=== PATIENT | female | born 2000 | race Caucasian/White ===

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

== ENCOUNTER 2018-07-04 11:27 | Emergency (ER) | payer BC, MEDICAID ==
[2018-07-04] MEDS ORDERED: NORMAL SALINE 1000 ML 1,000 ML IV ONE ×2 (11:56→13:27)
[2018-07-04] MEDS ORDERED: ONDANSETRON HCL INJ/PF 4 MG/2 ML SDV IV ONE (11:57)
--- NOTE | 2018-07-04 11:59 | ER Document Report ---
ED Medical Screen (RME) - General Chief Complaint: Nausea/Vomiting Stated Complaint: VOMITING,NAUSEA Time Seen by Provider: 07/04/18 11:40 Mode of Arrival: Ambulatory Information source: Patient Notes: female who is 7 weeks presents emergency department with complaints of nausea, vomiting, constipation, lower back cramping and lower abdominal sharp and stabbing pain. No radiation of her back pain or her abdominal pain. No alleviating or exacerbating factors. Patient states that she has followed up with her [facility] and has had a AN ultrasound that showed an intrauterine . She denies any vaginal bleeding. She states that she has been constipated for the last 5 days and is tried prune juice and apple juice without relief of symptoms. She is not sure if her pain is related to the constipation. [facility]. I have greeted and performed a rapid initial assessment of this patient. A comprehensive ED assessment and evaluation of the patient, analysis of test results and completion of the medical decision making process will be conducted by additional ED providers. PHYSICAL EXAMINATION: GENERAL: Well-appearing, well-nourished and in no acute distress. HEAD: Atraumatic, normocephalic. EYES: Pupils equal round extraocular movements intact, conjunctiva are normal. ENT: Nares patent NECK: Normal range of motion LUNGS: No respiratory distress Musculoskeletal: Normal range of motion NEUROLOGICAL: Normal speech, normal gait. PSYCH: Normal mood, normal affect. SKIN: Warm, Dry, normal turgor, no rashes or lesions noted. TRAVEL OUTSIDE OF THE [place] IN LAST 30 DAYS: No - Related Data Allergies/Adverse Reactions: metoclopramide [From Reglan] Allergy (Severe, Verified 07/04/18 11:47) restlessness oxycodone Allergy (Severe, Verified 07/04/18 11:47) drowsiness adhesive tape Allergy (Verified 07/04/18 11:47) Rash clotrimazole [From Lotrimin] Allergy (Verified 07/04/18 11:47) 2nd and 3rd degree Wahl escitalopram [From Lexapro] Allergy (Verified 07/04/18 11:47) Suicidal Ideation lithium Allergy (Verified 07/04/18 11:47) Suicidal Ideation prochlorperazine [From Compazine] Allergy (Verified 07/04/18 11:47) Nausea tioconazole [From Monistat 1 (tioconazole)] Allergy (Verified 07/04/18 11:47) 2nd and 3rd degree Wahl tramadol Allergy (Verified 07/04/18 11:47) Burning antidepressants Allergy (Uncoded 07/04/18 11:47) Suicidal Ideation Past Medical History - Social History Frequency of alcohol use: None Drug Abuse: None - Past Medical History Cardiac Medical History: Denies: Hx Pulmonary Embolism Pulmonary Medical History: Reports: Hx Asthma Renal/ Medical History: Denies: Hx Peritoneal Dialysis Past Surgical History: Reports: Hx Oral Surgery - Immunizations Hx Diphtheria, Pertussis, Tetanus Vaccination: No Physical Exam - Vital signs Vitals: Temp Pulse Resp BP Pulse Ox 98.6 F 91 16 114/65 100 07/04/18 11:36 07/04/18 11:36 07/04/18 11:36 07/04/18 11:36 07/04/18 11:36 Course - Vital Signs Vital signs: Temp Pulse Resp BP Pulse Ox 98.6 F 91 16 114/65 100 07/04/18 11:36 07/04/18 11:36 07/04/18 11:36 07/04/18 11:36 07/04/18 11:36
[2018-07-04 12:38] LABS: ABSOLUTE EOSINOPHILS # (AUTO) 0.1 10^3/uL (0.0-0.6); ABSOLUTE LYMPHOCYTES (AUTO) 1.6 10^3/uL (0.5-4.7); ABSOLUTE MONOCYTES (AUTO) 0.5 10^3/uL (0.1-1.4); BASOPHILS % (AUTO) 0.2 % (0-2); EOSINOPHILS % (AUTO) 1.7 % (0-6); HEMATOCRIT 44.4 % (36.0-47.0); HEMOGLOBIN 15.5 g/dL (12.0-15.5); LYMPHOCYTES % (AUTO) 19.5 % (13-45); MEAN CORPUSCULAR HEMOGLOBIN 30.6 pg (27.0-33.4); MEAN CORPUSCULAR VOLUME 87 fl (80-97); MONOCYTES % (AUTO) 6.3 % (3-13); PLATELET COUNT 239 10^3/uL (150-450); RED BLOOD COUNT 5.09 10^6/uL (3.72-5.28); RED CELL DISTRIBUTION WIDTH 12.4 % (11.5-14.0); SEGMENTED NEUTROPHILS % (AUTO) 72.3 % (42-78); TOTAL CELLS COUNTED % (AUTO) 100 %; WHITE BLOOD COUNT 8.4 10^3/uL (4.0-10.5)
[2018-07-04 12:50] LABS: ALANINE AMINOTRANSFERASE 37 U/L (9-52); ALBUMIN 4.5 g/dL (3.5-5.0); ALKALINE PHOSPHATASE 54 U/L (38-126); ANION GAP 9 (5-19); ASPARTATE AMINO TRANSFERASE 22 U/L (14-36); BILIRUBIN,DIRECT 0.1 mg/dL (0.0-0.4); BILIRUBIN,TOTAL 0.5 mg/dL (0.2-1.3); BLOOD UREA NITROGEN 9 mg/dL (7-20); CALCIUM 9.9 mg/dL (8.4-10.2); CARBON DIOXIDE 27 mmol/L (22-30); CHLORIDE 105 mmol/L (98-107); GLUCOSE 88 mg/dL (75-110); LIPASE 32.4 U/L (23-300); POTASSIUM 4.5 mmol/L (3.6-5.0); SODIUM 140.5 mmol/L (137-145); TOTAL PROTEIN 6.8 g/dL (6.3-8.2)
[2018-07-04 12:52] LABS: APPEARANCE,URINE CLOUDY; BILIRUBIN,URINE NEGATIVE (NEGATIVE); COLOR,URINE AMBER; GLUCOSE, URINE NEGATIVE (NEGATIVE); KETONES,URINE NEGATIVE (NEGATIVE); LEUKOCYTE ESTERASE,URINE SMALL (NEGATIVE); NITRITE,URINE NEGATIVE (NEGATIVE); PROTEIN,URINE NEGATIVE (NEGATIVE); URINE SPECIFIC GRAVITY 1.024
--- NOTE | 2018-07-04 13:36 | ER Document Report ---
ED General - General Chief Complaint: Nausea/Vomiting Stated Complaint: VOMITING,NAUSEA Time Seen by Provider: 07/04/18 11:40 Mode of Arrival: Ambulatory Notes: E provider note: female who is 7 weeks presents emergency department with complaints of nausea, vomiting, constipation, lower back cramping and lower abdominal sharp and stabbing pain. No radiation of her back pain or her abdominal pain. No alleviating or exacerbating factors. Patient states that she has followed up with her [employer] and has had a AN ultrasound that showed an intrauterine . She denies any vaginal bleeding. She states that she has been constipated for the last 5 days and is tried prune juice and apple juice without relief of symptoms. She is not sure if her pain is related to the constipation. She follows [facility] with [facility]. MY HPI: After treatments by the [facility] provider patient states she no longer has general lower abdominal pain. Does have minor pain in her bilateral lower back. Denies dysuria or vaginal discharge. Past medical history: Genital herpes Medications: Acyclovir Allergies: Reglan Last menstrual period 05/07/2018 TRAVEL OUTSIDE OF THE [place] IN LAST 30 DAYS: No - Related Data Allergies/Adverse Reactions: metoclopramide [From Reglan] Allergy (Severe, Verified 07/04/18 11:47) restlessness oxycodone Allergy (Severe, Verified 07/04/18 11:47) drowsiness adhesive tape Allergy (Verified 07/04/18 11:47) Rash clotrimazole [From Lotrimin] Allergy (Verified 07/04/18 11:47) 2nd and 3rd degree Wahl escitalopram [From Lexapro] Allergy (Verified 07/04/18 11:47) Suicidal Ideation lithium Allergy (Verified 07/04/18 11:47) Suicidal Ideation prochlorperazine [From Compazine] Allergy (Verified 07/04/18 11:47) Nausea tioconazole [From Monistat 1 (tioconazole)] Allergy (Verified 07/04/18 11:47) 2nd and 3rd degree Wahl tramadol Allergy (Verified 07/04/18 11:47) Burning antidepressants Allergy (Uncoded 07/04/18 11:47) Suicidal Ideation Past Medical History - General Information source: Patient - Social History Smoking Status: Unknown if Ever Smoked Frequency of alcohol use: None Drug Abuse: None Family History: Reviewed & Not Pertinent Patient has suicidal ideation: No Patient has homicidal ideation: No - Past Medical History Cardiac Medical History: Denies: Hx Pulmonary Embolism Pulmonary Medical History: Reports: Hx Asthma Renal/ Medical History: Denies: Hx Peritoneal Dialysis Past Surgical History: Reports: Hx Oral Surgery - Immunizations Hx Diphtheria, Pertussis, Tetanus Vaccination: No Review of Systems - Review of Systems Constitutional: No symptoms reported EENT: No symptoms reported - No Cardiovascular: No symptoms reported Respiratory: No symptoms reported Gastrointestinal: See HPI Genitourinary: See HPI Female Genitourinary: See HPI Musculoskeletal: No symptoms reported - and Skin: No symptoms reported Hematologic/Lymphatic: No symptoms reported Neurological/Psychological: No symptoms reported Physical Exam - Vital signs Vitals: Temp Pulse Resp BP Pulse Ox 98.6 F 91 16 114/65 100 07/04/18 11:36 07/04/18 11:36 07/04/18 11:36 07/04/18 11:36 07/04/18 11:36 - Notes Notes: GENERAL: Obese alert, interacts well. No acute distress. HEAD: Normocephalic, atraumatic. EYES: Pupils equal, round, and reactive to light. Extraocular movements intact. ENT: Oral mucosa moist, tongue midline. NECK: Full range of motion. Supple. Trachea midline. LUNGS: Clear to auscultation bilaterally, no wheezes, rales, or rhonchi. No respiratory distress. HEART: Regular rate and rhythm. No murmur ABDOMEN: Soft, Non-distended. Bowel sounds present in all 4 quadrants. No McBurney's point tenderness, no Sanchez sign noted. Patient does have gen eralized left upper quadrant abdominal pain. EXTREMITIES: Moves all 4 extremities spontaneously. No edema, normal radial and dorsalis pedis pulses bilaterally. No cyanosis. BACK: no cervical, thoracic, lumbar midline tenderness. No saddle anesthesia, normal distal neurovascular exam. General bilateral lower paraspinal lumbar back pain NEUROLOGICAL: Alert and oriented x3. Normal speech. cranial nerves II through XII grossly intact PSYCH: Normal affect, normal mood. SKIN: Warm, dry, normal turgor. No rashes or lesions noted. Course - Re-evaluation Re-evalutation: 07/04/18 13:40 Patient's labs show no signs of leukocytosis, no signs of anemia, no signs of electrolyte abnormalities, no signs of urinary tract infection. Urine was sent for culture although squamous cells outweigh white blood cells so I will not treat for urinary tract infection at this time. Patient was given 2 L of intravenous fluids in the emergency department. Discussed use of bulk forming laxatives, staying hydrated and use of Unisom and B6 at home. Patient wishes to refuse An enema at this time to relieve her constipation. Close return precautions discussed. Patient has had no episodes of vomiting since her treatments in the emergency department and has been able to p.o. liquids. Patient stable for discharge. - Vital Signs Vital signs: Temp Pulse Resp BP Pulse Ox 98.6 F 91 16 114/65 100 07/04/18 11:36 07/04/18 11:36 07/04/18 11:36 07/04/18 11:36 07/04/18 11:36 - Laboratory Result Diagrams: 07/04/18 12:03 07/04/18 12:03 Laboratory results interpreted by me: 07/04/18 07/04/18 12:03 12:03 Beta HCG, Quant [id number] H Urine Urobilinogen 2.0 H Ur Leukocyte Esterase SMALL H Discharge - Discharge Clinical Impression: Constipation Qualifiers: Constipation type: other constipation type Qualified Code(s): K59.09 - Other constipation Vomiting Qualifiers: Vomiting type: unspecified Vomiting Intractability: non-intractable Nausea presence: with nausea Qualified Code(s): R11.2 - Nausea with vomiting, unspecified Condition: Stable Disposition: HOME, SELF-CARE Instructions: Bulk Laxatives Additional Instructions: As we discussed you have been seen and treated in the emergency department for your generalized abdominal and lower back pain. Please take medications we have discussed Unisom and B6 for generalized nausea and vomiting. Please also increase her fiber and water intake. Please follow-up with your primary care pr ovider and [employer] at your earliest convenience. Please return to the emergency room should you have any other concerning symptom Prescriptions: Doxylamine Succinate [Unisom] 25 mg PO DAILY #30 tablet Forms: Return to Work
[2018-07-04 15:15] VITALS: BP 112/57
== END 2018-07-04 15:16 | disposition home or self-care (01) ==
LOC: ER 11:27
DX: O99.611 Diseases of the digestive system complicating pregnancy, first trimester (principal); K59.00 Constipation, unspecified; O21.9 Vomiting of pregnancy, unspecified; O98.311 Other infections with a predominantly sexual mode of transmission complicating pregnancy, first trimester; A60.00 Herpesviral infection of urogenital system, unspecified; O26.891 Other specified pregnancy related conditions, first trimester; R10.12 Left upper quadrant pain; O99.89 Other specified diseases and conditions complicating pregnancy, childbirth and the puerperium; M54.5 Low back pain; O99.511 Diseases of the respiratory system complicating pregnancy, first trimester; J45.909 Unspecified asthma, uncomplicated; Z3A.01 Less than 8 weeks gestation of pregnancy; Z88.8 Allergy status to other drugs, medicaments and biological substances; Z88.5 Allergy status to narcotic agent; Z91.048 Other nonmedicinal substance allergy status; Z88.3 Allergy status to other anti-infective agents
CPT/HCPCS: 99284; 96361; 96374; 36415; 87086; 84702; 83690; 85025; 80053; 81001; J2405; J7030

== ENCOUNTER 2018-09-06 03:14 | Emergency (ER) | payer BC, MEDICAID ==
[2018-09-06 05:02] LABS: APPEARANCE,URINE CLOUDY; BILIRUBIN,URINE NEGATIVE (NEGATIVE); CALCIUM OXALATE CRYSTALS,URINE MODERATE /HPF; GLUCOSE, URINE NEGATIVE (NEGATIVE); KETONES,URINE NEGATIVE (NEGATIVE); LEUKOCYTE ESTERASE,URINE TRACE (NEGATIVE); NITRITE,URINE NEGATIVE (NEGATIVE); PROTEIN,URINE 100 mg/dL (NEGATIVE); URINE SPECIFIC GRAVITY 1.034; UROBILINOGEN,URINE NEGATIVE mg/dL (<2.0)
[2018-09-06 05:03] LABS: COLOR,URINE DARK YELLOW
--- NOTE | 2018-09-06 05:05 | RADIOLOGY REPORT (SQ) ---
Right foot three view on 09/06/2018 at 4:43 AM CLINICAL INDICATION: Right foot pain after fall COMPARISON: None FINDINGS: There are no fractures. Visualized joints are well aligned. No bony abnormality is noted. There is no radiopaque foreign body. IMPRESSION: No acute abnormality.
--- NOTE | 2018-09-06 05:06 | RADIOLOGY REPORT (SQ) ---
Right knee four view on 09/06/2018 at 4:38 AM CLINICAL INDICATION: Right knee pain after fall COMPARISON: None FINDINGS: No joint effusion is noted. There are no fractures. Visualized joints are well aligned. No bony abnormality is noted. IMPRESSION: No acute abnormality.
--- NOTE | 2018-09-06 05:06 | RADIOLOGY REPORT (SQ) ---
EXAM DESCRIPTION: XR CHEST 2 VIEWS COMPLETED DATE/TME: 09/06/2018 04:17 CLINICAL HISTORY: 18 years, Female, fall bruised left ribs (shield; patient ) COMPARISON: 05/08/2017 NUMBER OF VIEWS: Two TECHNIQUE: Two views of the chest LIMITATIONS: None. FINDINGS: The lungs are clear. The heart is normal in size. There is no pneumothorax or pleural effusion. There is no acute fracture IMPRESSION: No acute cardiopulmonary abnormality copyright 2010 [employer]- All Rights Reserved
[2018-09-06 05:20] LABS: ABSOLUTE EOSINOPHILS # (AUTO) 0.1 10^3/uL (0.0-0.6); ABSOLUTE LYMPHOCYTES (AUTO) 2.3 10^3/uL (0.5-4.7); ABSOLUTE MONOCYTES (AUTO) 0.7 10^3/uL (0.1-1.4); ABSOLUTE NEUT (AUTO) 7.1 10^3/uL (1.7-8.2); BASOPHILS % (AUTO) 0.2 % (0-2); EOSINOPHILS % (AUTO) 1.2 % (0-6); HEMATOCRIT 36.9 % (36.0-47.0); LYMPHOCYTES % (AUTO) 22.4 % (13-45); MEAN CORPUSCULAR HEMOGLOBIN 30.3 pg (27.0-33.4); MEAN CORPUSCULAR HGB CONC 35.1 g/dL (32.0-36.0); MEAN CORPUSCULAR VOLUME 86 fl (80-97); MONOCYTES % (AUTO) 7.1 % (3-13); PLATELET COUNT 227 10^3/uL (150-450); RED BLOOD COUNT 4.28 10^6/uL (3.72-5.28); RED CELL DISTRIBUTION WIDTH 12.7 % (11.5-14.0); SEGMENTED NEUTROPHILS % (AUTO) 69.1 % (42-78); TOTAL CELLS COUNTED % (AUTO) 100 %; WHITE BLOOD COUNT 10.2 10^3/uL (4.0-10.5)
[2018-09-06 05:31] LABS: ALANINE AMINOTRANSFERASE 23 U/L (9-52); ALBUMIN 3.7 g/dL (3.5-5.0); ALKALINE PHOSPHATASE 53 U/L (38-126); ANION GAP 9 (5-19); ASPARTATE AMINO TRANSFERASE 13 U/L (14-36); BILIRUBIN,DIRECT 0.2 mg/dL (0.0-0.4); BILIRUBIN,TOTAL 0.3 mg/dL (0.2-1.3); BLOOD UREA NITROGEN 11 mg/dL (7-20); CALCIUM 9.8 mg/dL (8.4-10.2); CARBON DIOXIDE 23 mmol/L (22-30); CHLORIDE 107 mmol/L (98-107); GLUCOSE 81 mg/dL (75-110); POTASSIUM 4.1 mmol/L (3.6-5.0); SODIUM 138.6 mmol/L (137-145); TOTAL PROTEIN 6.4 g/dL (6.3-8.2)
--- NOTE | 2018-09-06 06:23 | RADIOLOGY REPORT (SQ) ---
EXAM DESCRIPTION: US LIMITED COMPLETED DATE/TME: 09/06/2018 04:15 CLINICAL HISTORY: 18 years Female, fall injury, cramping 17w0d Comparison: 02/14/17 TECHNIQUE/LIMITATION: Targeted OB sonogram for requested parameters only. FINDINGS: Cardiac activity: 139-bpm. Placenta: Anterior, left lateral. No demonstrated abruption or previa. Presentation: Breech Cervical length: 3.6-cm. Closed appearance. Other: Anterior uterine contraction visualized. IMPRESSION: Targeted OB sonogram for requested parameters
[2018-09-06] MEDS ORDERED: NORMAL SALINE 1000 ML 1,000 ML IV ONE (06:41)
[2018-09-06] MEDS ORDERED: HYDROXYZINE PAMOATE 50 MG CAPSULE PO ONE (06:53)
--- NOTE | 2018-09-06 07:00 | ER Document Report ---
ED Fall - General Chief Complaint: Fall Stated Complaint: FELL DOWN STAIRS/ Time Seen by Provider: 09/06/18 03:59 Notes: Patient is a 18-year-old female, at 17 weeks gestation by first trimester ultrasound, that comes emergency department for chief complaint of a fall. She states that she stepped through her steps and fell forward, she fell onto the ground, she states she scraped her right knee, she has pain in her right foot, she also scraped her left rib area and left side area on the ground. She denies difficulty breathing. She denies hitting her head, denies pain in her arms or back. She states she has had some cramping sensations but denies vaginal bleeding. Her tetanus is up-to-date within 5 years. TRAVEL OUTSIDE OF THE [place] IN LAST 30 DAYS: No - Related data Allergies/Adverse Reactions: metoclopramide [From Reglan] Allergy (Severe, Verified 07/04/18 11:47) restlessness oxycodone Allergy (Severe, Verified 07/04/18 11:47) drowsiness adhesive tape Allergy (Verified 07/04/18 11:47) Rash clotrimazole [From Lotrimin] Allergy (Verified 07/04/18 11:47) 2nd and 3rd degree Wahl escitalopram [From Lexapro] Allergy (Verified 07/04/18 11:47) Suicidal Ideation lithium Allergy (Verified 07/04/18 11:47) Suicidal Ideation prochlorperazine [From Compazine] Allergy (Verified 07/04/18 11:47) Nausea tioconazole [From Monistat 1 (tioconazole)] Allergy (Verified 07/04/18 11:47) 2nd and 3rd degree Wahl tramadol Allergy (Verified 07/04/18 11:47) Burning antidepressants Allergy (Uncoded 07/04/18 11:47) Suicidal Ideation Past Medical History - General Information source: Patient - Social History Smoking Status: Never Smoker Frequency of alcohol use: None Drug Abuse: None Lives with: Family Family History: Reviewed & Not Pertinent Patient has suicidal ideation: No Patient has homicidal ideation: No - Past Medical History Cardiac Medical History: Denies: Hx Pulmonary Embolism Pulmonary Medical History: Reports: Hx Asthma Renal/ Medical History: Denies: Hx Peritoneal Dialysis Past Surgical History: Reports: Hx Oral Surgery - Immunizations Immunizations up to date: Yes Hx Diphtheria, Pertussis, Tetanus Vaccination: Yes Review of Systems - Review of Systems Constitutional: No symptoms reported EENT: No symptoms reported Cardiovascular: No symptoms reported Respiratory: No symptoms reported Gastrointestinal: No symptoms reported Genitourinary: No symptoms reported Female Genitourinary: See HPI Musculoskeletal: See HPI Skin: See HPI Hematologic/Lymphatic: No symptoms reported Neurological/Psychological: No symptoms reported Physical Exam - Vital signs Vitals: Temp Pulse Resp BP Pulse Ox 98.3 F 111 H 24 H 106/52 L 97 09/06/18 03:20 09/06/18 03:20 09/06/18 03:20 09/06/18 03:09/06/18 03:20 - Notes Notes: GENERAL: Alert, interacts well. No acute distress. HEAD: Normocephalic, atraumatic. EYES: Pupils equal, round, and reactive to light. Extraocular movements intact. ENT: Oral mucosa moist, tongue midline. Oropharynx unremarkable. Airway patent. Nares patent, no nasal septal hematoma, TM's intact. NECK: Full range of motion. Supple. Trachea midline. LUNGS: Clear to auscultation bilaterally, no wheezes, rales, or rhonchi. No respiratory distress. There is a tiny abrasion over the left lateral ribs with minimal tenderness around this area. There is no significant bruising, there is no swelling or crepitus. HEART: Borderline tachycardic, normal rhythm. No murmur. ABDOMEN: Soft, non-tender. Non-distended. Bowel sounds present in all 4 quadrants. GENITOURINARY: Deferred EXTREMITIES: Moves all 4 extremities spontaneously. No edema, normal radial and dorsalis pedis pulses bilaterally. Abrasion over the right anterior knee w ithout soft tissue swelling, bruising over the right fifth digit dorsally without swelling of the foot. Normal upper and lower extremity exam is otherwise. BACK: no cervical, thoracic, lumbar midline tenderness. No saddle anesthesia, normal distal neurovascular exam. NEUROLOGICAL: Alert and oriented x3. Normal speech. Cranial nerves II through XII grossly intact. PSYCH: Normal affect, normal mood. SKIN: Warm, dry, normal turgor. No rashes or lesions noted. Course - Re-evaluation Re-evalutation: Patient is borderline tachycardic. She has a very small abrasion to her left rib area over the lateral aspect, there is no bruising or noted tenderness over the abdomen although patient is reporting some intermittent cramping sensations. She has a abrasion over the right knee and over the right fifth digit of the foot there is a small bruise. No other signs of trauma. She is alert and well- appearing. No vaginal bleeding. Laboratory workup unremarkable except for elevated specific gravity consistent with dehydration. Ultrasound showing visualized anterior uterine contraction, closed cervix of 3.6 cm, no acute findings otherwise. Because of the visualized contraction I discussed with Dr. Martinez, recommends CRIMINAL COURT JUDGE consultation. Discussed with Dr. Rodriguez. She recommends that patient be given IV fluids, Vistaril, and if she is not having contractions she can be discharged with return precautions. I discussed this with patient, patient is very agreeable with this plan, she is requesting to leave, she states she has not had any contractions that she has felt since she arrived. She is not tachycardic on my evaluation. Stable at time of discharge. - Vital Signs Vital signs: Temp Pulse Resp BP Pulse Ox 98.3 F 111 H 24 H 106/52 L 97 09/06/18 03:20 09/06/18 03:20 09/06/18 03:20 09/06/18 03:20 09/06/18 03:20 - Laboratory Result Diagrams: 09/06/18 04:50 09/06/18 04:50 Laboratory results interpreted by me: 09/06/18 09/06/18 04:28 04:50 Creatinine 0.48 L AST 13 L Urine Protein 100 H Ur Leukocyte Esterase TRACE H Discharge - Discharge Clinical Impression: Uterine contractions, Abrasion, right knee, initial encounter, Right foot pain, Rib pain on left side, Dehydration Fall Qualifiers: Encounter type: initial encounter Qualified Code(s): W19.XXXA - Unspecified fall, initial encounter Condition: Stable Disposition: HOME, SELF-CARE Additional Instructions: Your x-rays do not show any concerning fractures or findings. Keep abrasions clean, clean with soap and water, apply topical antibiotic. Your ultrasound looks normal except for a noted contraction. You have been rehydrated and given hydroxyzine for this. You need to improve your home hydration. I did speak with Dr. Rodriguez, CRIMINAL COURT JUDGE tonight. Follow-up with CRIMINAL COURT JUDGE. Return if you worsen with increased contractions including contractions more than 10 minutes apart (despite lying on your left side for approximately an hour), bleeding, severe worsening pain, passing out, or any other concerning or worsening symptoms. Forms: Return to Work
[2018-09-06 08:25] VITALS: BP 105/65
== END 2018-09-06 08:26 | disposition home or self-care (01) ==
LOC: EEVIPCON 03:14 → ER 03:14
DX: O9A.212 Injury, poisoning and certain other consequences of external causes complicating pregnancy, second trimester (principal); S80.211A Abrasion, right knee, initial encounter; S20.312A Abrasion of left front wall of thorax, initial encounter; M79.671 Pain in right foot; O26.892 Other specified pregnancy related conditions, second trimester; E86.0 Dehydration; W10.9XXA Fall (on) (from) unspecified stairs and steps, initial encounter; O99.512 Diseases of the respiratory system complicating pregnancy, second trimester; J45.909 Unspecified asthma, uncomplicated; Z3A.17 17 weeks gestation of pregnancy
CPT/HCPCS: 99284; 86900; 86901; 36415; 85025; 80053; 81001; 71046; 73630; 73564; 76815; J7030

== ENCOUNTER 2018-10-28 21:18 | Outpatient (CLI) | payer BC, MEDICAID ==
[2018-10-28 21:55] LABS: URINE AMPHETAMINES SCREEN NEGATIVE; URINE BARBITURATES SCREEN NEGATIVE; URINE BENZODIAZEPINES SCREEN NEGATIVE; URINE COCAINE SCREEN NEGATIVE; URINE MARIJUANA (THC) SCREEN NEGATIVE; URINE METHADONE SCREEN NEGATIVE; URINE PHENCYCLIDINE SCREEN NEGATIVE
[2018-10-28 21:57] LABS: APPEARANCE,URINE CLOUDY; BILIRUBIN,URINE NEGATIVE (NEGATIVE); COLOR,URINE YELLOW; GLUCOSE, URINE NEGATIVE (NEGATIVE); KETONES,URINE NEGATIVE (NEGATIVE); LEUKOCYTE ESTERASE,URINE MODERATE (NEGATIVE); NITRITE,URINE NEGATIVE (NEGATIVE); PROTEIN,URINE NEGATIVE (NEGATIVE); URINE SPECIFIC GRAVITY 1.023; UROBILINOGEN,URINE NEGATIVE mg/dL (<2.0)
[2018-10-28 22:34] LABS: BACTERIA (WET MOUNT) 4+ BACTERIA SEEN; EPITHELIALS (WET MOUNT) 3+ EPITHELIALS SEEN; T.VAGINALIS (WET MOUNT) NO TRICHOMONAS SEEN; WBCS (WET MOUNT) 2+ WBCS SEEN; YEAST (WET MOUNT) YEAST SEEN
--- NOTE | 2018-10-28 23:12 | RADIOLOGY REPORT (SQ) ---
EXAM DESCRIPTION: [facility]: US LIMITED CLINICAL HISTORY: 18 years Female; Cervical length R/O PTL EGA by dates 24 weeks 3 days TECHNIQUE: Transabdominal obstetrical ultrasound was performed. COMPARISON: None. FINDINGS: Number of fetuses: Single position: Transverse Anatomic measurements were not made HR: 155 BPM Anatomy: Within normal limits on this limited survey exam Amniotic fluid: JESUS 14.6 cm, adequate Cervix: 3.6 cm, closed Placenta: Posterior IMPRESSION: 1. Single viable IUP. No acute findings. 2. Cervix 2.6 cm, closed
[2018-10-28 23:59] LABS: CHLAM PCR NOT DETECTED (NOT DETECT); GON PCR NOT DETECTED (NOT DETECT)
== END 2018-10-29 00:24 | disposition home or self-care (01) ==
LOC: LC 21:18
PROVIDERS: ATTEND Student in an Organized Health Care Education/Training Program
PROC: 4A1HXCZ Monitoring of Products of Conception, Cardiac Rate, External Approach (ICD-10-PCS; principal; 2018-10-28)
DX: O99.282 Endocrine, nutritional and metabolic diseases complicating pregnancy, second trimester (principal); E86.0 Dehydration; O99.332 Smoking (tobacco) complicating pregnancy, second trimester; F17.210 Nicotine dependence, cigarettes, uncomplicated; Z3A.24 24 weeks gestation of pregnancy
CPT/HCPCS: 76815; 80307; 81001; 87210; 87491; 87591

== ENCOUNTER 2019-01-20 08:59 | Outpatient (CLI) | payer BC, MEDICAID ==
[2019-01-20 10:12] LABS: APPEARANCE,URINE SLIGHTLY-CLOUDY; BILIRUBIN,URINE NEGATIVE (NEGATIVE); COLOR,URINE YELLOW; GLUCOSE, URINE NEGATIVE (NEGATIVE); KETONES,URINE NEGATIVE (NEGATIVE); LEUKOCYTE ESTERASE,URINE TRACE (NEGATIVE); NITRITE,URINE NEGATIVE (NEGATIVE); PROTEIN,URINE 30 mg/dL (NEGATIVE); URINE SPECIFIC GRAVITY 1.028; UROBILINOGEN,URINE NEGATIVE mg/dL (<2.0)
[2019-01-20 10:32] LABS: URINE AMPHETAMINES SCREEN NEGATIVE; URINE BARBITURATES SCREEN NEGATIVE; URINE BENZODIAZEPINES SCREEN NEGATIVE; URINE COCAINE SCREEN NEGATIVE; URINE MARIJUANA (THC) SCREEN NEGATIVE; URINE METHADONE SCREEN NEGATIVE; URINE PHENCYCLIDINE SCREEN NEGATIVE
== END 2019-01-20 11:08 | disposition home or self-care (01) ==
LOC: LC 08:59
PROVIDERS: ATTEND Obstetrics & Gynecology Gynecology
PROC: 4A1HXCZ Monitoring of Products of Conception, Cardiac Rate, External Approach (ICD-10-PCS; principal; 2019-01-20)
DX: O47.03 False labor before 37 completed weeks of gestation, third trimester (principal); Z3A.36 36 weeks gestation of pregnancy
CPT/HCPCS: 59025; 80307; 81005; 84112

== ENCOUNTER 2019-01-21 22:58 | Outpatient (CLI) | payer BC, MEDICAID ==
[2019-01-22 00:13] LABS: APPEARANCE,URINE CLOUDY; BILIRUBIN,URINE NEGATIVE (NEGATIVE); COLOR,URINE YELLOW; GLUCOSE, URINE NEGATIVE (NEGATIVE); KETONES,URINE NEGATIVE (NEGATIVE); LEUKOCYTE ESTERASE,URINE MODERATE (NEGATIVE); NITRITE,URINE NEGATIVE (NEGATIVE); PROTEIN,URINE NEGATIVE (NEGATIVE); URINE SPECIFIC GRAVITY 1.021; UROBILINOGEN,URINE NEGATIVE mg/dL (<2.0)
--- NOTE | 2019-01-22 00:26 | Non Stress Test Report ---
Non Stress Test Datetime Report Generated by CPN: 01/22/2019 00:26 DEMOGRAPHIC Test Number: 2 EGA NST: 36.4 EGA NST: 36.3 EGA NST: 36.3 INDICATION Indication for Study: Decreased Movement; Ordered by Provider Indication for Study: Ordered by Provider VITAL SIGNS Temperature - NST: 98.0 MONITORING Monitor Explained: Monitor Explained; Test Explained; Patient Verbalized Understanding Monitor Explained: Monitor Explained; Test Explained; Patient Verbalized Understanding Monitor Explained: Monitor Explained; Test Explained; Patient Verbalized Understanding Time on Monitor: 01/21/2019 23:50 Time on Monitor: 01/20/2019 14:53 Time on Monitor: 01/20/2019 10:20 Time off Monitor: 01/22/2019 00:14 Time off Monitor: 01/20/2019 15:40 Time off Monitor: 01/20/2019 10:48 NST Duration: 24 NST Duration: 47 NST Duration: 28 NST INTERVENTIONS NST Interventions: None NST Interventions: PO Hydration; Reposition Patient NST Interventions: PO Hydration; Reposition Patient Physician Notified NST: Hein Physician Notified NST: Diomedes Armstrong CNM on unit and reviewed fht BABY A: [id number] BABY A Movement : Present Movement : Present Movement : Present Contraction Frequency : irritability Contraction Frequency : none Contraction Frequency : Irregular FHR Baseline : 135 FHR Baseline : 145 FHR Baseline : 140 Accelerations : 15X15 Accelerations : 15X15 Accelerations : 15X15 Decelerations : None Decelerations : None Decelerations : None Variability : Moderate 6-25bpm Variability : Moderate 6-25bpm Variability : Moderate 6-25bpm NST Review: Meets Criteria for Reactive NST NST Review: Meets Criteria for Reactive NST NST Review: Meets Criteria for Reactive NST NST Review and Verified By : Joel Loera RN NST Review and Verified By : Sukhdeep Rodriguez RN NST Results: Reactive NST Results: Reactive NST Results: Reactive NST REPORT Report Trigger: Send Report
[2019-01-22 00:34] LABS: URINE AMPHETAMINES SCREEN NEGATIVE; URINE BARBITURATES SCREEN NEGATIVE; URINE BENZODIAZEPINES SCREEN NEGATIVE; URINE COCAINE SCREEN NEGATIVE; URINE MARIJUANA (THC) SCREEN NEGATIVE; URINE METHADONE SCREEN NEGATIVE; URINE PHENCYCLIDINE SCREEN NEGATIVE
== END 2019-01-22 00:27 | disposition home or self-care (01) ==
LOC: LC 22:58
PROVIDERS: ATTEND Student in an Organized Health Care Education/Training Program
PROC: 4A1HXCZ Monitoring of Products of Conception, Cardiac Rate, External Approach (ICD-10-PCS; principal; 2019-01-21)
DX: O36.8130 Decreased fetal movements, third trimester, not applicable or unspecified (principal); O47.03 False labor before 37 completed weeks of gestation, third trimester; O99.333 Smoking (tobacco) complicating pregnancy, third trimester; F17.210 Nicotine dependence, cigarettes, uncomplicated; Z3A.36 36 weeks gestation of pregnancy
CPT/HCPCS: 59025; 80307; 81005

== ENCOUNTER 2019-02-15 09:33 | Outpatient (CLI) | payer BC, MEDICAID ==
[2019-02-15 10:11] LABS: APPEARANCE,URINE CLOUDY; BILIRUBIN,URINE NEGATIVE (NEGATIVE); COLOR,URINE YELLOW; GLUCOSE, URINE NEGATIVE (NEGATIVE); KETONES,URINE NEGATIVE (NEGATIVE); LEUKOCYTE ESTERASE,URINE MODERATE (NEGATIVE); NITRITE,URINE NEGATIVE (NEGATIVE); PROTEIN,URINE NEGATIVE (NEGATIVE); URINE SPECIFIC GRAVITY 1.023; UROBILINOGEN,URINE NEGATIVE mg/dL (<2.0)
--- NOTE | 2019-02-15 10:26 | Non Stress Test Report ---
Non Stress Test Datetime Report Generated by CPN: 02/15/2019 10:25 DEMOGRAPHIC EGA NST: 40.1 INDICATION Indication for Study: Other Indication for Study (NST) Other: lc MONITORING Monitor Explained: Monitor Explained; Test Explained; Patient Verbalized Understanding Time on Monitor: 02/15/2019 09:49 Time off Monitor: 02/15/2019 10:23 NST Duration: 34 NST INTERVENTIONS NST Interventions: PO Hydration Physician Notified NST: A Armstrong CNM BABY A: [id number] BABY A Movement : Present Contraction Frequency : 0 FHR Baseline : 125 Accelerations : 15X15 Decelerations : None Variability : Moderate 6-25bpm NST Review: Meets Criteria for Reactive NST NST Review and Verified By : D Bellavance RN NST Results: Reactive NST REPORT Report Trigger: Send Report
[2019-02-15 10:38] LABS: URINE AMPHETAMINES SCREEN NEGATIVE; URINE BARBITURATES SCREEN NEGATIVE; URINE BENZODIAZEPINES SCREEN NEGATIVE; URINE COCAINE SCREEN NEGATIVE; URINE MARIJUANA (THC) SCREEN NEGATIVE; URINE METHADONE SCREEN NEGATIVE; URINE PHENCYCLIDINE SCREEN NEGATIVE
== END 2019-02-15 10:55 | disposition home or self-care (01) ==
LOC: LC 09:33
PROVIDERS: ATTEND Obstetrics & Gynecology
PROC: 4A1HXCZ Monitoring of Products of Conception, Cardiac Rate, External Approach (ICD-10-PCS; principal; 2019-02-15)
DX: O48.0 Post-term pregnancy (principal); Z3A.40 40 weeks gestation of pregnancy
CPT/HCPCS: 59025; 80307; 81005

== ENCOUNTER 2019-02-18 07:25 | Inpatient (IN) | payer BC, MEDICAID ==
[2019-02-18 08:40] LABS: APPEARANCE,URINE SLIGHTLY-CLOUDY; BILIRUBIN,URINE NEGATIVE (NEGATIVE); COLOR,URINE YELLOW; GLUCOSE, URINE NEGATIVE (NEGATIVE); KETONES,URINE NEGATIVE (NEGATIVE); LEUKOCYTE ESTERASE,URINE SMALL (NEGATIVE); NITRITE,URINE NEGATIVE (NEGATIVE); PROTEIN,URINE 30 mg/dL (NEGATIVE); URINE SPECIFIC GRAVITY 1.027
[2019-02-18] MEDS ORDERED: PENICILLIN G POTASSIUM 5,000,000 UNIT in DEXTROSE 5%-WATER 100 ML IV PRN (08:53)
[2019-02-18] MEDS ORDERED: RINGERS SOLUTION,LACTATED 1,000 ML IV PRN (08:57)
[2019-02-18] MEDS ORDERED: PENICILLIN G POTASSIUM 5,000,000 UNIT in DEXTROSE 5%-WATER 100 ML IV ONE (08:57)
[2019-02-18 09:09] LABS: URINE AMPHETAMINES SCREEN NEGATIVE; URINE BARBITURATES SCREEN NEGATIVE; URINE BENZODIAZEPINES SCREEN NEGATIVE; URINE COCAINE SCREEN NEGATIVE; URINE MARIJUANA (THC) SCREEN NEGATIVE; URINE METHADONE SCREEN NEGATIVE; URINE PHENCYCLIDINE SCREEN NEGATIVE
[2019-02-18 09:19] LABS: ABSOLUTE EOSINOPHILS # (AUTO) 0.1 10^3/uL (0.0-0.6); ABSOLUTE LYMPHOCYTES (AUTO) 1.6 10^3/uL (0.5-4.7); ABSOLUTE MONOCYTES (AUTO) 0.8 10^3/uL (0.1-1.4); ABSOLUTE NEUT (AUTO) 10.2 10^3/uL (1.7-8.2); BASOPHILS % (AUTO) 0.1 % (0-2); HEMATOCRIT 39.3 % (36.0-47.0); HEMOGLOBIN 13.5 g/dL (12.0-15.5); LYMPHOCYTES % (AUTO) 12.7 % (13-45); MEAN CORPUSCULAR HEMOGLOBIN 30.6 pg (27.0-33.4); MEAN CORPUSCULAR HGB CONC 34.3 g/dL (32.0-36.0); MEAN CORPUSCULAR VOLUME 89 fl (80-97); MONOCYTES % (AUTO) 6.6 % (3-13); PLATELET COUNT 188 10^3/uL (150-450); RED BLOOD COUNT 4.42 10^6/uL (3.72-5.28); RED CELL DISTRIBUTION WIDTH 12.9 % (11.5-14.0); SEGMENTED NEUTROPHILS % (AUTO) 79.6 % (42-78); TOTAL CELLS COUNTED % (AUTO) 100 %; WHITE BLOOD COUNT 12.8 10^3/uL (4.0-10.5)
[2019-02-18] MEDS ORDERED: OXYTOCIN/NORMAL SALINE 20 UNIT/1,000 ML RTUINJ IV PRN ×2 (10:09→15:19)
--- NOTE | 2019-02-18 10:29 | Admission Physical ---
Datetime Report Generated by CPN: 02/18/2019 10:29 CURRENT ADMISSION Chief Complaint: Uterine Contractions; Suspected Ruptured Membranes Chief Complaint Other: SROM at approx 0300 Indication for Induction: Not Applicable Admit Impression : Ruptured Membranes Admit Plan: Admit to Unit; Initiate Labor Protocol ALLERGIES Medication Allergies: Yes Medication Allergies: hydroxyzine (02/15/2019); prochlorperazine/Nausea (02/15/2019); lithium/Suicidal Ideati (02/15/2019); oxycodone/SV/drowsiness (02/15/2019); clotrimazole/2nd and 3rd deg (02/15/2019); tioconazole/2nd and 3rd deg (02/15/2019); adhesive tape/Rash (02/15/2019); tramadol/Burning (02/15/2019); metoclopramide/SV/restlessness (02/15/2019); escitalopram/Suicidal Ideati (02/15/2019) Latex: Unknown OBSTETRICAL HISTORY EDC: 02/14/2019 00:00 : 5 Para: 2 Livin Gestational Diabetes: No Rh Sensitization: No Incompetent Cervix: No MATHEW: No Infertility: No ART Treatment: No Uterine Anomaly: No IUGR: No Hx Previous C/S: No Macrosomia: No Hx Loss/Stillborn: No PIH: No Hx : No Placenta Previa/Abruption: No Depression/PP Depression: No PTL/PROM: No Post Hemorrhage: No Current Procedures: Ultrasound Obstetrical History Comments: G1- 2015, G2- 2016, SAB G3- 2017, , clavical fx during delivery, arm presentation G4- SAB G5- Current SEE RECORDS Alcohol: No Marijuana : No Cocaine: No Other Illicit Drugs: No Cigarettes: Current Everyday Smoker. [id number] Cigarette Frequency: > 10 per day Advised to Stop: Yes MEDICAL HISTORY Diabetes: No Blood Transfusion: No Pulmonary Disease (Asthma, TB): Yes Breast Disease: No Hypertension: No Piano Player Surgery: No Heart Disease: No Hosp/Surgery: Yes Autoimmune Disorder: No Anesthetic Complications: No Kidney Disease: No Abnormal Pap Smear: No Neuro/Epilepsy: No Psychiatric Disorders: No Other Medical Diseases: No Hepatitis/Liver Disease: No Significant Family History: No Varicosities/Phlebitis: No Trauma/Violence : No Thyroid Dysfunction: No INFECTIOUS HISTORY Gonorrhea: No Genital Herpes: Yes Chlamydia: No Tuberculosis: No Syphilis: No Hepatitis: No HIV/AIDS Exposure: No Rash or Viral Illness: No HPV: No Infectious History Comments: last outbreak on 01/06- been on valtrex since PHYSICAL EXAM General: Normal HEENT: Normal Neurologic: Normal Thyroid: Normal Heart: Normal Lungs: Normal Breast: Normal Back: Normal Abdomen: Normal Genitourinary Exam: Normal Extremities: Normal DTRs: Normal Pelvic Type: Adequate Vital Signs: Reviewed VAGINAL EXAM Dilatation: 3 Effacement: 80 Station: -2 Contraction Comments: Irregular MEMBRANES Pooling: Positive Membranes: Ruptured FETUS A EGA: 40.4 FHR- Baseline: 135 Accelerations: 15X15 Decelerations: None FHR Category: Category I Presentation: Vertex Admit Comment: 18 yo at 40.4 wks admitted after c/o SROM at 0300-meconium stained and verified by ActimPROM here today. Having some ctx that are irregular but no too painful presently. No VB. Good FM. Preg uncomplicated per patient report. Chart shows GBS + urine. RH positive OB hx 2 prior without complication other than second had compound presentation (hand/arm along side of head) Cat 1 FHT without regular ctx on toco Discussed plan with patient: SROM at 40.4 wks EGA -Vertex presentation -Admit to LDR -IVFs (LR at 125 cc/hr) -NPO except Ice chips/popcicles -begin Pitocin Low dose protocol -CEFM and toco -Desires epidural when indicated for pain management -Routine care -Anticipate PLANS FOR LABOR AND DELIVERY Labor and Delivery: None Pain Management: Epidural Feeding Preference: Breast Benefit of Breast Feed Discussed: Yes Circumcision: Yes INFORMED CONSENT Signature: with User ID: Frank : with User ID: Frank
[2019-02-18] MEDS ORDERED: ONDANSETRON HCL INJ/PF 4 MG/2 ML SDV IV ONE (12:00)
[2019-02-18] MEDS ORDERED: PENICILLIN G POTASSIUM 2,500,000 UNIT in DEXTROSE 5%-WATER 50 ML IV SCH (13:00)
[2019-02-18] MEDS ORDERED: NALBUPHINE HCL INJ 10 MG/1 ML AMPULE ONE (13:24)
[2019-02-18] MEDS ORDERED: EPHEDRINE SULFATE INJ 50 MG/1 ML AMPULE ONE (14:10)
[2019-02-18] MEDS ORDERED: FENTANYL CITRATE INJ/PF 100 MCG/2 ML AMPUL ONE (14:10)
[2019-02-18] MEDS ORDERED: PHENYLEPHRINE HCL INJ/PF 10 MG/1 ML SDV ONE (14:10)
[2019-02-18] MEDS ORDERED: FENTANYL/BUPIVACAINE/NS/PF 300 MCG/150 ML RTUINJ EPI ONE (14:10)
[2019-02-18] MEDS ORDERED: BUPIVACAINE HCL 0.25 % INJ/PF (2.5 MG/1 ML) 30 ML VIAL ONE (14:11)
[2019-02-18] MEDS ORDERED: PROMETHAZINE HCL 25 MG SUPP.RECT PR PRN (15:19)
[2019-02-18] MEDS ORDERED: BENZOCAINE/MENTHOL AEROSOL SPRAY 56 ML TOP PRN (15:19)
[2019-02-18] MEDS ORDERED: MEASLES,MUMPS&RUBELLA VACC/PF 0.5 ML VIAL SUBCUT PRN (15:19)
[2019-02-18] MEDS ORDERED: MAGNESIUM HYDROXIDE SUSP 30 ML UDCUP PO PRN (15:19)
[2019-02-18] MEDS ORDERED: DIPH/PERTUSS(ACELL)/TETANUS VAC/PF 0.5 ML SYR (>=10YO) IM PRN (15:19)
[2019-02-18] MEDS ORDERED: PROMETHAZINE HCL INJ 25 MG/1 ML VIAL IV PRN (15:19)
[2019-02-18] MEDS ORDERED: MISOPROSTOL 0.2 MG TABLET PR PRN (15:19)
[2019-02-18] MEDS ORDERED: ACETAMINOPHEN WITH CODEINE #3 TABLET PO PRN (15:19)
[2019-02-18] MEDS ORDERED: DIPHENHYDRAMINE HCL 25 MG CAPSULE PO PRN (15:19)
[2019-02-18] MEDS ORDERED: GLYCERIN/WITCH HAZEL LEAF 1 EACH MED..WIPE TP PRN (15:19)
[2019-02-18] MEDS ORDERED: ACETAMINOPHEN 650 MG SUPP.RECT PR PRN (15:19)
[2019-02-18] MEDS ORDERED: PSEUDOEPHEDRINE HCL 30 MG TABLET PO PRN (15:19)
[2019-02-18] MEDS ORDERED: NA PHOS,M-B/NA PHOS,DI-BA (ADULT) 133 ML ENEMA PR PRN (15:19)
[2019-02-18] MEDS ORDERED: DIBUCAINE 1% OINTMENT 56 GM TP PRN (15:19)
[2019-02-18] MEDS ORDERED: PROMETHAZINE HCL 25 MG TABLET PO PRN (15:19)
--- NOTE | 2019-02-18 16:32 | Delivery Summary ---
Del Sum A-C Datetime Report Generated by CPN: 02/18/2019 16:32 DELIVERY PERSONNEL DELIVERY PERSONNEL: [id number] Delivery Doctor:: Nina Stubbs CNM Labor and Delivery Nurse:: Liz Owens RN (Annotations: Data stored by Layo on behalf of user) Labor and Delivery Nurse:: JOLENE Shabazz Stator Plate Washer/COMPLAINT CLERK: Ashleigh Beth, ST MATERNAL INFORMATION Delivery Anesthesia: Epidural Medications After Delivery: Pitocin Drip 20 Units/1000ml NSS; Cytotec 600mcg Per Rectum/Vagina (Annotations: Data stored by CPN on behalf of user) Delivery QBL: 100 Maternal Complications: None Provider Comments: Progressed rapidly after epidural, NVD viable male from OA to ROSEANN over intact perineum alot of thick meconium, baby placed on mothers abd, cord clamped and cut after 2 minutes by FOB, cord blood to lab, spont delivery of large placenta with ? calcifications, sent to pathology, Cytotec 600 via rectum, FFFM Baby and mom in recovery in stable condition, Pitocin and massage LABOR SUMMARY EDC: 02/14/2019 00:00 No. Babies in Womb: 1 Attempted: No Labor Anesthesia: Epidural LABOR INFORMATION Reason for Induction: Not Applicable Onset of Labor: 02/18/2019 07:42 Complete Dilatation: 02/18/2019 14:49 Oxytocin: Augmentation Group B Beta Strep: positive Antibiotics # of Doses: 1 Antibiotics Time of Last Dose: 1030 Name of Antibiotic Given: penicillin Steroids Given: None Reason Steroids Not Administered: Not Applicable MEMBRANES Membranes Rupture Method: Spontaneous Rupture of Membranes: 02/18/2019 03:30 Length of Rupture (hr): 11.47 Amniotic Fluid Color: Light Meconium Amniotic Fluid Amount: Small Amniotic Fluid Odor: Normal STAGES OF LABOR Stage 1 hr: 7 Stage 1 min: 7 Stage 2 hr: 0 Stage 2 min: 9 Stage 3 hr: 0 Stage 3 min: 6 Total Time in Labor hr: 7 Total Time in Labor min: 22 VAGINAL DELIVERY Episiotomy: None Laceration #1: None Laceration Repair: Not Applicable CSECTION DELIVERY Primary Indication: N/A Secondary Indication: N/A BABY A INFORMATION Delivery Date/Time: 02/18/2019 14:58 Method of Delivery: Vaginal Born in Route : No : N/A Forceps: N/A Vacuum Extraction: N/A Shoulder Dystocia : No PRESENTATION/POSITION BABY A Presentation: Cephalic Cephalic Presentation: Vertex Vertex Position: Right Occipital Anterior Breech Presentation: N/A PLACENTA INFORMATION BABY A Placenta Delivery Time : 02/18/2019 15:04 Placenta Method of Delivery: Spontaneous Placenta Status: Delivered SCORES BABY A Heart Rate 1 min: >100 bpm Resp Effort 1 min: Good Cry Reflex Irritability 1 min: Cough or Sneeze or Pulls Away Muscle Tone 1 min: Active Motion Color 1 min: Body [place], Extremities Blue SCORE 1 MIN: 9 Heart Rate 5 min: >100 bpm Resp Effort 5 min: Good Cry Reflex Irritability 5 min: Cough or Sneeze or Pulls Away Muscle Tone 5 min: Active Motion Color 5 min: Body [place], Extremities Blue SCORE 5 MIN: 9 INFORMATION BABY A Gestational Age at Delivery: 40.0 Gestational Status: Full Term- 39- 40.6 Weeks Outcome : Liveborn Infant Condition : Stable Infant Sex: Male IDENTIFICATION BABY A Verification Date/Time: 02/18/2019 15:49 ID Band Number: [id number] Mother's Name Verified: Yes Infant RN Verifying : RLila Mendez rn WEIGHT/LENGTH BABY A Birthweight (gm): 3460 Infant Weight (lb): 7 Weight (oz): 10 Infant Length (in): 21.00 Infant Length (cm): 53.34 CORD INFORMATION BABY A No. Cord Vessels: 3 Nuchal Cord : N/A Cord Blood Taken: Yes-For Storage (Mom's Blood type +) Infant Suction: None ASSESSMENT BABY A Skin to Skin: Yes
[2019-02-18] MEDS: FERROUS SULFATE 325 MG TABLET PO SCH (18:16)
[2019-02-18] MEDS: DOCUSATE SODIUM 100 MG CAPSULE PO SCH (18:16)
[2019-02-18] MEDS: ACETAMINOPHEN WITH CODEINE #3 TABLET PO PRN (21:23)
[2019-02-18] MEDS: IBUPROFEN 800 MG TABLET PO SCH (21:24)
[2019-02-18] MEDS: FAMOTIDINE 20 MG TABLET PO SCH (21:25)
[2019-02-19] MEDS: ACETAMINOPHEN WITH CODEINE #3 TABLET PO PRN (02:42)
[2019-02-19 06:35] LABS: HEMATOCRIT 31.6 % (36.0-47.0); MEAN CORPUSCULAR HEMOGLOBIN 30.7 pg (27.0-33.4); MEAN CORPUSCULAR HGB CONC 34.4 g/dL (32.0-36.0); MEAN CORPUSCULAR VOLUME 89 fl (80-97); PLATELET COUNT 141 10^3/uL (150-450); RED BLOOD COUNT 3.55 10^6/uL (3.72-5.28); RED CELL DISTRIBUTION WIDTH 12.9 % (11.5-14.0); WHITE BLOOD COUNT 11.1 10^3/uL (4.0-10.5)
[2019-02-19 06:42] LABS: HEMOGLOBIN 10.9 g/dL (12.0-15.5)
[2019-02-19] MEDS: IBUPROFEN 800 MG TABLET PO SCH ×3 (06:47→21:30)
--- NOTE | 2019-02-19 10:41 | PDOC PROGRESS REPORT ---
Subjective-OB Progress Note for:: 02/19/19 Subjective: Feeling stuffy, would llike some claritan, holding baby , scant bleeding Physical Exam (OB) Vital Signs: Temp Pulse Resp BP Pulse Ox 98.0 F 83 18 104/63 98 02/19/19 07:38 02/19/19 07:38 02/19/19 07:38 02/19/19 07:38 02/19/19 07:38 Intake & Output 02/18/19 02/19/19 02/20/19 06:59 06:59 06:59 Weight 117.9 kg - PIH/Pre-Eclampsia Clonus: Negative Headache: Absent Epigastric Pain: No Visual Changes: No - Lochia Lochia Amount: Scant < 10 ml Lochia Color: Rubra/Red - Abdomen Description: Tender, Soft Hernia Present: No Fundal Description: Firm, Midline Fundal Height: u/u - u/2 Objective-Diagnostic Laboratory: 02/19/19 05:54 02/19/19 05:54 WBC 11.1 H RBC 3.55 L Hgb 10.9 L D Hct 31.6 L MCV 89 MCH 30.7 MCHC 34.4 RDW 12.9 Plt Count 141 L Assessment and Plan(PN) - Assessment and Plan (1) Meconium in amniotic fluid Is this a current diagnosis for this admission?: Yes (2) Normal vaginal delivery Is this a current diagnosis for this admission?: Yes (3) Obesity complicating Qualifiers: Trimester: first trimester Qualified Code(s): O99.211 - Obesity complicating , first trimester Is this a current diagnosis for this admission?: Yes (4) Active labor at term Is this a current diagnosis for this admission?: Yes (5) Carrier of group B Streptococcus Is this a current diagnosis for this admission?: Yes (6) Herpes simplex infection during Qualifiers: Trimester: first trimester Qualified Code(s): O98.511 - Other viral diseases complicating , first trimester; B00.9 - Herpesviral infection, unspecified Is this a current diagnosis for this admission?: Yes - Time Spent with Patient Time with patient: Less than 15 minutes Medications reviewed and adjusted accordingly: Yes - Disposition Anticipated Discharge: Home
[2019-02-19] MEDS: PRENATAL VITAMIN W DHA CAPSULE PO SCH (10:58)
[2019-02-19] MEDS: FAMOTIDINE 20 MG TABLET PO SCH ×2 (10:58→21:30)
[2019-02-19] MEDS: FERROUS SULFATE 325 MG TABLET PO SCH ×2 (10:58→17:39)
[2019-02-19] MEDS: SENNOSIDES/DOCUSATE 8.6-50 MG 1 EACH TABLET PO SCH (10:58)
[2019-02-19] MEDS: DOCUSATE SODIUM 100 MG CAPSULE PO SCH ×2 (10:58→17:39)
[2019-02-19] MEDS: LORATADINE 10 MG TABLET PO SCH (11:00)
[2019-02-20] MEDS: IBUPROFEN 800 MG TABLET PO SCH (06:02)
[2019-02-20 08:16] VITALS: BP 98/55
--- NOTE | 2019-02-20 09:12 | PDOC PROGRESS REPORT ---
Subjective-OB Progress Note for:: 02/20/19 Subjective: Doing well, , ready to go home, wants to go back to work ASTRID, scant bleeding, constipated Physical Exam (OB) Vital Signs: Temp Pulse Resp BP Pulse Ox 97.7 F 69 16 98/55 L 99 02/20/19 08:32 02/20/19 08:32 02/20/19 08:32 02/20/19 07:32 02/20/19 08:32 Intake & Output 02/19/19 02/20/19 02/21/19 06:59 06:59 06:59 Intake Total 400 Balance 400 Weight 117.9 kg - PIH/Pre-Eclampsia Clonus: Negative Headache: Absent Epigastric Pain: No Visual Changes: No - Lochia Lochia Amount: Scant < 10 ml Lochia Color: Rubra/Red - Abdomen Description: Tender, Soft Hernia Present: No Fundal Description: Firm, Midline Fundal Height: u/u - u/2 Objective-Diagnostic Laboratory: 02/19/19 05:54 Assessment and Plan(PN) - Assessment and Plan (1) Meconium in amniotic fluid Is this a current diagnosis for this admission?: Yes (2) Normal vaginal delivery Is this a current diagnosis for this admission?: Yes (3) Obesity complicating Qualifiers: Trimester: first trimester Qualified Code(s): O99.211 - Obesity complicating , first trimester Is this a current diagnosis for this admission?: Yes (4) Active labor at term Is this a current diagnosis for this admission?: Yes (5) Carrier of group B Streptococcus Is this a current diagnosis for this admission?: Yes (6) Herpes simplex infection during Qualifiers: Trimester: first trimester Qualified Code(s): O98.511 - Other viral diseases complicating , first trimester; B00.9 - Herpesviral infection, unspecified Is this a current diagnosis for this admission?: Yes - Time Spent with Patient Time with patient: Less than 15 minutes Medications reviewed and adjusted accordingly: Yes - Disposition Anticipated Discharge: Home Within: within 24 hours
--- NOTE | 2019-02-20 09:15 | PDOC DISCHARGE SUMMARY ---
Impression - Admit/DC Date/PCP Admission Date/Primary Care Provider: 02/18/19 08:44 XAVIER JACKSON MD Discharge Date: 02/20/19 - Discharge Diagnosis (1) Meconium in amniotic fluid Is this a current diagnosis for this admission?: Yes (2) Normal vaginal delivery Is this a current diagnosis for this admission?: Yes (3) Obesity complicating Is this a current diagnosis for this admission?: Yes (4) Active labor at term Is this a current diagnosis for this admission?: Yes (5) Carrier of group B Streptococcus Is this a current diagnosis for this admission?: Yes (6) Herpes simplex infection during Is this a current diagnosis for this admission?: Yes - Additional Information Resuscitation Status: Full Code Discharge Diet: As Tolerated, Regular Discharge Activity: Activity As Tolerated, No Lifting Over 10 Pounds, No Lifting/Push/Pulling, Pelvic Rest Referrals: XAVIER JACKSON MD [Primary Care Provider] - (rtc 2 weeks) Home Medications: Prenat 115/Iron Fum/Folic/Dss [ 19 Tablet] 1 tab PO BID 01/20/19 Ferrous Sulfate [Feosol 325 mg Tablet] 325 mg PO BID tablet 02/20/19 HPI Gestational Age: 40 Reason(s) for Admission: PROM Admission Note: augmented with pitocin, epidural Procedures: NST, Ultrasound Intrapartum Procedure(s): Spontaneous Vaginal Delivery Hospital Course Hospital Course: routine Results Laboratory Results: WBC 11.1 10^3/uL (4.0-10.5) H 02/19/19 05:54 RBC 3.55 10^6/uL (3.72-5.28) L 02/19/19 05:54 Hgb 10.9 g/dL (12.0-15.5) L D 02/19/19 05:54 Hct 31.6 % (36.0-47.0) L 02/19/19 05:54 MCV 89 fl (80-97) 02/19/19 05:54 MCH 30.7 pg (27.0-33.4) 02/19/19 05:54 MCHC 34.4 g/dL (32.0-36.0) 02/19/19 05:54 RDW 12.9 % (11.5-14.0) 02/19/19 05:54 Plt Count 141 10^3/uL (150-450) L 02/19/19 05:54 Lymph % (Auto) 12.7 % (13-45) L 02/18/19 09:03 Harris % (Auto) 6.6 % (3-13) 02/18/19 09:03 Eos % (Auto) 1.0 % (0-6) 02/18/19 09:03 Baso % (Auto) 0.1 % (0-2) 02/18/19 09:03 Absolute Neuts (auto) 10.2 10^3/uL (1.7-8.2) H 02/18/19 09:03 Absolute Lymphs (auto) 1.6 10^3/uL (0.5-4.7) 02/18/19 09:03 Absolute Monos (auto) 0.8 10^3/uL (0.1-1.4) 02/18/19 09:03 Absolute Eos (auto) 0.1 10^3/uL (0.0-0.6) 02/18/19 09:03 Absolute Basos (auto) 0.0 10^3/uL (0.0-0.2) 02/18/19 09:03 Seg Neutrophils % 79.6 % (42-78) H 02/18/19 09:03 Urine Color YELLOW 02/18/19 07:45 Urine Appearance SLIGHTLY-CLOUDY 02/18/19 07:45 Urine pH 6.0 (5.0-9.0) 02/18/19 07:45 Ur Specific Avant 1.027 02/18/19 07:45 Urine Protein 30 mg/dL (NEGATIVE) H 02/18/19 07:45 Urine Glucose (UA) NEGATIVE mg/dL (NEGATIVE) 02/18/19 07:45 Urine Ketones NEGATIVE mg/dL (NEGATIVE) 02/18/19 07:45 Urine Blood SMALL (NEGATIVE) H 02/18/19 07:45 Urine Nitrite NEGATIVE (NEGATIVE) 02/18/19 07:45 Urine Bilirubin NEGATIVE (NEGATIVE) 02/18/19 07:45 Urine Urobilinogen 2.0 mg/dL (<2.0) H 02/18/19 07:45 Ur Leukocyte Esterase SMALL (NEGATIVE) H 02/18/19 07:45 Urine Ascorbic Acid NEGATIVE (NEGATIVE) 02/18/19 07:45 Membranes Rupture POSITIVE (NEGATIVE) H 02/18/19 07:45 Urine Opiates Screen NEGATIVE 02/18/19 07:45 Urine Methadone Screen NEGATIVE 02/18/19 07:45 Ur Barbiturates Screen NEGATIVE 02/18/19 07:45 Ur Phencyclidine Scrn NEGATIVE 02/18/19 07:45 Ur Amphetamines Screen NEGATIVE 02/18/19 07:45 U Benzodiazepines Scrn NEGATIVE 02/18/19 07:45 Urine Cocaine Screen NEGATIVE 02/18/19 07:45 U Marijuana (THC) Screen NEGATIVE 02/18/19 07:45 Blood Type A POSITIVE 02/18/19 09:03 Antibody Screen NEGATIVE 02/18/19 09:03 Plan Health Concerns: constipation, laxative, increase water and fiber Plan of Treatment: routine pp care Time Spent: Less than 30 Minutes
[2019-02-20] MEDS: FERROUS SULFATE 325 MG TABLET PO SCH (10:16)
[2019-02-20] MEDS: LORATADINE 10 MG TABLET PO SCH (10:16)
[2019-02-20] MEDS: DOCUSATE SODIUM 100 MG CAPSULE PO SCH (10:16)
[2019-02-20] MEDS: FAMOTIDINE 20 MG TABLET PO SCH (10:16)
[2019-02-20] MEDS: SENNOSIDES/DOCUSATE 8.6-50 MG 1 EACH TABLET PO SCH (10:16)
[2019-02-20] MEDS: PRENATAL VITAMIN W DHA CAPSULE PO SCH (10:17)
[2019-02-20] MEDS: ACETAMINOPHEN WITH CODEINE #3 TABLET PO PRN (12:33)
[2019-02-21 13:48] LABS: HSV-I IGG AB <0.91 index (0.00-0.90)
== END 2019-02-20 13:15 | disposition home or self-care (01) | DRG 806 ==
LOC: LC 07:25 → LR 08:44 → EEVIPCON 08:44 → 2S 17:15
PROVIDERS: ADMIT Obstetrics & Gynecology; ATTEND Obstetrics & Gynecology
PROC: 10E0XZZ Delivery of Products of Conception, External Approach (ICD-10-PCS; principal; 2019-02-18)
DX: O77.0 Labor and delivery complicated by meconium in amniotic fluid (principal); O98.32 Other infections with a predominantly sexual mode of transmission complicating childbirth; Z37.0 Single live birth; O99.334 Smoking (tobacco) complicating childbirth; F17.210 Nicotine dependence, cigarettes, uncomplicated; A60.00 Herpesviral infection of urogenital system, unspecified; Z79.899 Other long term (current) drug therapy; O99.52 Diseases of the respiratory system complicating childbirth; J45.909 Unspecified asthma, uncomplicated; Z3A.40 40 weeks gestation of pregnancy; Z88.8 Allergy status to other drugs, medicaments and biological substances; O99.824 Streptococcus B carrier state complicating childbirth; O99.214 Obesity complicating childbirth; E66.9 Obesity, unspecified
CPT/HCPCS: 36415; 80307; 81005; 84112; 85025; 85027; 86592; 86695; 86850; 86900; 86901; 88307; J2300; J2370; J3010; J3490

== ENCOUNTER 2019-02-22 01:39 | Emergency (ER) | payer BC, MEDICAID ==
[2019-02-22 03:31] LABS: ABSOLUTE EOSINOPHILS # (AUTO) 0.4 10^3/uL (0.0-0.6); ABSOLUTE MONOCYTES (AUTO) 0.6 10^3/uL (0.1-1.4); ABSOLUTE NEUT (AUTO) 5.4 10^3/uL (1.7-8.2); BASOPHILS % (AUTO) 0.3 % (0-2); EOSINOPHILS % (AUTO) 4.9 % (0-6); HEMATOCRIT 36.5 % (36.0-47.0); HEMOGLOBIN 12.7 g/dL (12.0-15.5); LYMPHOCYTES % (AUTO) 24.3 % (13-45); MEAN CORPUSCULAR HEMOGLOBIN 31.2 pg (27.0-33.4); MEAN CORPUSCULAR HGB CONC 34.7 g/dL (32.0-36.0); MEAN CORPUSCULAR VOLUME 90 fl (80-97); MONOCYTES % (AUTO) 6.6 % (3-13); PLATELET COUNT 183 10^3/uL (150-450); RED BLOOD COUNT 4.05 10^6/uL (3.72-5.28); SEGMENTED NEUTROPHILS % (AUTO) 63.9 % (42-78); TOTAL CELLS COUNTED % (AUTO) 100 %; WHITE BLOOD COUNT 8.4 10^3/uL (4.0-10.5)
--- NOTE | 2019-02-22 04:13 | ER Document Report ---
ED GI/ - General Chief Complaint: Vaginal Bleeding Stated Complaint: VAGINAL BLEEDING Time Seen by Provider: 02/22/19 04:12 Primary Care Provider: MANNY SANTORO MD [Primary Care Provider] - Follow up as needed Mode of Arrival: Ambulatory Information source: Patient Notes: HISTORY OF PRESENT ILLNESS: Patient is a 18-year-old female 3 days from her third child delivering at 40 weeks who presents with persistent vaginal bleeding. Patient reports that she initially had a small amount of bleeding that nearly resolved, then 2 days ago it abruptly worsened and prior to arrival she began passing large clots and bleeding greatly intensified. Location: Vaginal Onset: 3 days ago Provocation: Quality: Cramping, bleeding Radiation: None Severity: Moderate to severe Timing: Constant LMP: 3 days Associated symptoms: Denies fevers or chills, no cough or congestion, no vomiting or diarrhea REVIEW OF SYSTEMS: CONSTITUTIONAL : Denies fever or chills, no sweats. Denies recent illness. EENT: Denies eye, ear, throat, or mouth pain or symptoms. Denies nasal or sinus congestion. CARDIOVASCULAR: Denies chest pain. RESPIRATORY: Denies cough, cold, or chest congestion. Denies shortness of breath, difficulty breathing, or wheezing. GASTROINTESTINAL: Denies abdominal pain. Denies nausea, vomiting, or diarrhea. Denies constipation. GENITOURINARY: Positive for bleeding. Denies difficulty urinating, painful urination, burning, frequency, or blood in urine. MUSCULOSKELETAL: Denies neck or back pain or joint pain or swelling. SKIN: Denies rash or skin lesions. HEMATOLOGIC : Denies easy bruising or bleeding. LYMPHATIC: Denies swollen, enlarged glands. NEUROLOGICAL: Denies altered mental status or loss of consciousness. Denies headache. Denies weakness or paralysis or loss of use of either side. Denies problems with gait or speech. Denies sensory or motor loss. PSYCHIATRIC: Denies anxiety or stress or depression. All other systems reviewed and negative. PHYSICAL EXAMINATION: GENERAL: Well-appearing, well-nourished and in no acute distress. HEAD: Atraumatic, normocephalic. No scalp deformity, depression, or crepitance. EYES: Pupils are 3 mm and equal/round/reactive to light, extraocular movements intact, sclera anicteric, conjunctiva are normal. ENT: Nares patent bilaterally, oropharynx clear without exudates or palatal petechia. Moist mucous membranes. No tonsil hypertrophy. NECK: Normal range of motion, supple without lymphadenopathy. LUNGS: Breath sounds present, equal, and clear to auscultation bilaterally. No wheezes, rales, or rhonchi. HEART: Regular rate and rhythm without murmurs, rubs, or gallops. 2+ peripheral pulses. Normal capillary refill. ABDOMEN: Soft, mild suprapubic tenderness, nondistended. Normoactive bowel sounds. No guarding, no rebound. No masses appreciated. BACK: Normal contour, no midline tenderness. Rectal exam deferred. PELVC: Deferred. EXTREMITIES: Normal range of motion, no pitting or edema. No cyanosis. NEUROLOGICAL: No focal neurological deficits. Moves all extremities spontaneously and on command. PSYCH: Normal mood, normal affect. No suicidal thoughts/ideations. No homicidal thoughts/ideations. No hallucinations. SKIN: Warm, dry, normal turgor, no rashes or lesions noted. ASSESSMENT AND PLAN: This patient is a 18-year-old female who presents with bleeding and passage of clots and possible tissue. 1. Will obtain labs, urine, and beta hCG quantitative. 2. Will obtain ultrasound to assess for possible retained products of conceptus. TRAVEL OUTSIDE OF THE [place] IN LAST 30 DAYS: No - HPI Patient complains to provider of: Vaginal bleeding Onset: Last week Timing/Duration: Gradual, Persistent Quality of pain: Achy, Cramping Severity at maximum: Moderate Severity in ED: Moderate Pain Level: 2 Location: Pelvis, Vaginal Vaginal bleeding (Compared to normal period): Heavier, Passing clots, Passing tissue Sexual history: Active Associated symptoms: Nausea Exacerbated by: Denies Relieved by: Denies Similar symptoms previously: Yes Recently seen / treated by doctor: Yes - Related Data Allergies/Adverse Reactions: metoclopramide [From Reglan] Allergy (Severe, Verified 02/15/19 11:00) restlessness oxycodone Allergy (Severe, Verified 02/15/19 11:00) drowsiness adhesive tape Allergy (Verified 02/15/19 11:00) Rash clotrimazole [From Lotrimin] Allergy (Verified 02/15/19 11:00) 2nd and 3rd degree Wahl escitalopram [From Lexapro] Allergy (Verified 02/15/19 11:00) Suicidal Ideation hydroxyzine [From Vistaril] Allergy (Verified 02/15/19 11:00) lithium Allergy (Verified 02/15/19 11:00) Suicidal Ideation prochlorperazine [From Compazine] Allergy (Verified 02/15/19 11:00) Nausea tioconazole [From Monistat 1 (tioconazole)] Allergy (Verified 02/15/19 11:00) 2nd and 3rd degree Wahl tramadol Allergy (Verified 02/15/19 11:00) Burning antidepressants Allergy (Uncoded 02/15/19 11:00) Suicidal Ideation Past Medical History - General Information source: Patient, Relative - Social History Smoking Status: Current Every Day Smoker Chew tobacco use (# tins/day): No Frequency of alcohol use: None Drug Abuse: None Lives with: Family Family History: Reviewed & Not Pertinent Patient has suicidal ideation: No Patient has homicidal ideation: No - Past Medical History Cardiac Medical History: Reports: None Denies: Hx Pulmonary Embolism Pulmonary Medical History: Reports: Hx Asthma EENT Medical History: Reports: None Neurological Medical History: Reports: None Endocrine Medical History: Reports: None Renal/ Medical History: Reports: None. Denies: Hx Peritoneal Dialysis Malignancy Medical History: Reports: None GI Medical History: Reports: None Musculoskeletal Medical History: Reports None Skin Medical History: Reports None Psychiatric Medical History: Reports: None Traumatic Medical History: Reports: None Infectious Medical History: Reports: None Surgical Hx: Negative Past Surgical History: Reports: Hx Oral Surgery - Immunizations Immunizations up to date: Yes Hx Diphtheria, Pertussis, Tetanus Vaccination: Yes Review of Systems - Review of Systems Constitutional: No symptoms reported EENT: No symptoms reported Cardiovascular: No symptoms reported Respiratory: No symptoms reported Gastrointestinal: No symptoms reported Genitourinary: No symptoms reported Female Genitourinary: See HPI, Vaginal bleeding Musculoskeletal: No symptoms reported Skin: No symptoms reported Hematologic/Lymphatic: No symptoms reported Neurological/Psychological: No symptoms reported -: Yes All other systems reviewed and negative Physical Exam - Vital signs Vitals: Temp Pulse Resp BP Pulse Ox 98.2 F 75 18 120/76 100 02/22/19 01:56 02/22/19 01:56 02/22/19 01:56 02/22/19 01:56 02/22/19 01:56 Interpretation: Normal Course - Re-evaluation Re-evalutation: 02/22/19 06:03 CBC is normal. Ultrasound shows no evidence of retained products of conceptus. Will discharge the patient home with strict return precautions and follow-up with primary care. All results were explained to and discussed with the patient, and all questions addressed and answered. The patient voices both understanding and agreeing with the plan. - Vital Signs Vital signs: Temp Pulse Resp BP Pulse Ox 98.2 F 75 18 120/76 100 02/22/19 01:56 02/22/19 01:56 02/22/19 01:56 02/22/19 01:56 02/22/19 01:56 - Laboratory Result Diagrams: 02/22/19 03:20 Laboratory results interpreted by me: 02/22/19 02/22/19 02:58 03:20 Beta HCG, Quant 82.87 H Urine Protein 30 H Urine Blood LARGE H Ur Leukocyte Esterase MODERATE H - Diagnostic Test Radiology reviewed: Image reviewed, Reports reviewed Discharge - Discharge Clinical Impression: bleeding Qualifiers: hemorrhage type: unspecified Qualified Code(s): O72.1 - Other immediate hemorrhage Condition: Good Disposition: HOME, SELF-CARE Instructions: Vaginal Bleeding ([facility]) Additional Instructions: You have been evaluated in the Emergency Department for vaginal bleeding after giving . While here, you had an ultrasound that was normal and it is now safe to be discharged home. Please follow-up with your [facility] as instructed in 24 to 48 hours to be rechecked. Return to the Emergency Department if you experience worsening bleeding, weakness, episodes of passing out, or any other concerning symptoms. Referrals: MANNY SANTORO MD [Primary Care Provider] - Follow up as needed LINDA CHAN MD [ACTIVE STAFF] - Follow up as needed Print Language: [place]
--- NOTE | 2019-02-22 05:03 | RADIOLOGY REPORT (SQ) ---
CLINICAL HISTORY: vaginal bleeding COMPARISON: None. TECHNIQUE: US PELVIS on 02/22/2019 4:14 AM CDT FINDINGS: Uterus is mildly enlarged measuring 17 cm. Endometrial stripe measures 1.4 cm. The endometrium is slightly heterogeneous without definite focal flow. Ovaries are not seen. IMPRESSION: Heterogeneous endometrium with no convincing retained products of conception.
[2019-02-22 05:12] LABS: APPEARANCE,URINE CLOUDY; BILIRUBIN,URINE NEGATIVE (NEGATIVE); COLOR,URINE ORANGE; GLUCOSE, URINE NEGATIVE (NEGATIVE); KETONES,URINE NEGATIVE (NEGATIVE); LEUKOCYTE ESTERASE,URINE MODERATE (NEGATIVE); NITRITE,URINE NEGATIVE (NEGATIVE); PROTEIN,URINE 30 mg/dL (NEGATIVE); UROBILINOGEN,URINE NEGATIVE mg/dL (<2.0)
[2019-02-22 06:19] VITALS: BP 110/73
== END 2019-02-22 06:18 | disposition home or self-care (01) ==
LOC: ER 01:39 → EEVIPCON 01:39 → ER 06:18
DX: O72.2 Delayed and secondary postpartum hemorrhage (principal); O99.335 Smoking (tobacco) complicating the puerperium; F17.200 Nicotine dependence, unspecified, uncomplicated; O99.53 Diseases of the respiratory system complicating the puerperium; J45.909 Unspecified asthma, uncomplicated; Z88.8 Allergy status to other drugs, medicaments and biological substances; Z88.5 Allergy status to narcotic agent; Z91.048 Other nonmedicinal substance allergy status; Z88.3 Allergy status to other anti-infective agents
CPT/HCPCS: 36415; 76856; 81001; 84702; 85025; 93976